=== PATIENT | male | born 1950 | race African-American/Black ===

== ENCOUNTER 2016-10-18 06:25 | Day surgery (SDC) | payer OTHER ==
[2016-10-17 15:46] LABS: BASOPHILS 0.3 %; BASOPHILS ABSOLUTE 0.02 10/3/uL (0.0-0.16); EOSINOPHILS 0.9 %; EOSINOPHILS ABSOLUTE 0.05 10/3/uL (0.0-0.53); HEMATOCRIT 38.9 % (40.0-51.0); HEMOGLOBIN 12.7 g/dL (13.6-17.8); IMMATURE GRANULOCYTES 0.2 %; IMMATURE GRANULOCYTES ABSOLUTE 0.01 10/3/uL (0.0-0.11); LYMPHOCYTES 29.8 %; LYMPHOCYTES ABSOLUTE 1.74 10/3/uL (0.67-4.30); MEAN CORPUS HGB CONC 32.6 g/dL (32.0-36.0); MEAN CORPUSCULAR HEMOGLOB 29.8 pg (26.0-34.0); MEAN CORPUSCULAR VOLUME 91.3 fL (80-100); MEAN PLATELET VOLUME 10.4 fL (9.2-13.0); MONOCYTES ABSOLUTE 0.35 10/3/uL (0.21-1.20); NEUTROPHILS 62.8 %; NEUTROPHILS ABSOLUTE 3.67 10/3/uL (2.02-8.40); PLATELET COUNT 187 10/3/uL (150-400); RED CELL COUNT 4.26 10/6/uL (4.7-6.1); WHITE BLOOD CELLS 5.8 10/3/uL (4.5-10.5)
[2016-10-17 15:52] LABS: MANUAL DIFF NO %
[2016-10-17 15:57] LABS: BUN (BLOOD UREA NITROGEN) 16 MG/DL (6-23); CALCIUM, SERUM 9.7 MG/DL (8.5-10.4); CHLORIDE, SERUM 107 MMOL/L (96-112); CO2 (CARBON DIOXIDE) 31 MMOL/L (24-34); CREATININE 1.31 MG/DL (0.70-1.30); GFR AFRICAN AMERICAN 66 ML/MIN (>=60); GFR NON AFRICAN AMERICAN 57 ML/MIN (>=60); GLUCOSE, SERUM 103 MG/DL (60-99); POTASSIUM, SERUM 4.2 MMOL/L (3.5-5.3); SODIUM, SERUM 143 MMOL/L (135-148)
[2016-10-17 16:12] LABS: ASCORBIC ACID (UR NOT ORDER) NEG (NEG); BILIRUBIN, URINE NEGATIVE (NEG); KETONE, URINE NEGATIVE (NEG)
--- NOTE | ~2016-10-18 | OP ---
Record Of Operation [address] [place]. [address] NAME: SUGAR CHUNG : 54 STATUS : [place] [facility] [place] [id number] AGE: 66 ADM/REG DATE : 10/18/16 MR#: [id number] REPORT SERV DATE: 10/18/16 DICTATED BY: GULSHAN SILVERMAN DATE: 10/18/16 REPORT STATUS : Draft TRANSCRIBED BY: MODL DATE: 10/18/16 DATE OF PROCEDURE: 10/18/2016 SURGEON: Gulshan Silverman MD. TITLE OF OPERATION: Cystourethroscopy. PREOPERATIVE DIAGNOSIS: Bladder mass. POSTOPERATIVE DIAGNOSIS: No evidence of bladder mass. INDICATIONS: Mr. Chung is a 66-year-old male with a 4 cm bladder mass on ultrasound. He is a former smoker. He is here for cystoscopy and possible resection of bladder tumor. ANESTHESIA: General. COMPLICATIONS: None. IMPLANTS: None. SPECIMENS: None. NARRATIVE: The patient was brought to the operating room, identified by his wristband. General anesthesia was induced, and Ancef was given for preoperative antibiotics. He was placed in dorsal lithotomy position, prepped and draped in sterile fashion. A cystoscope was placed into his urethra into his bladder. The prostatic urethra was short and appeared somewhat obstructing. The bladder was inspected. There was no obvious mass in the bladder. The mucosa was completely normal. There was no bleeding. There were no abnormalities. There was a sense of fullness extrinsic to the bladder, but was certainly not involving the bladder mucosa itself. His bladder was inspected with the 30 and 70 degree lens, and again no lesions were found. The bladder was drained. The scope was removed. I will get a CT scan after he recovers in the recovery room to better identify what is going on. I suspect it may just be the reservoir of his penile prosthesis, and I will see him back in one week to go over all the results. SARA/PHYLICIA Gulshan Silverman MD / [id number] CC: Gulshan Silverman MD Record Of Operation [address] [place]. [address] NAME: SUGAR CHUNG : 54 STATUS : REG [facility]#: [id number] AGE: 66 ADM/REG DATE : 10/18/16 MR#: [id number] REPORT SERV DATE: 10/18/16 DICTATED BY: GULSHAN SILVERMAN DATE: 10/18/16 REPORT STATUS : Draft TRANSCRIBED BY: MODL DATE: 10/18/16 Marin Oliver M.D.
[~2016-10-18 06:25] MED LIST: ASAB PO; DENIES HOME MEDS; DILACOR X2 PO; HYZAAR 100/25 T1 TAB PO; LEVOTHYROXIN150 MCG PO; LIPITOR20 PO; MCZ25 PO; PROTONIX PO; Z100 PO
== END 2016-10-18 16:18 | disposition home or self-care (01) ==
LOC: SDC 06:25
PROVIDERS: Urology
PROC: 0TJB8ZZ Inspection of Bladder, Via Natural or Artificial Opening Endoscopic (ICD-10-PCS; principal; 2016-10-18 07:45)
DX: N32.89 Other specified disorders of bladder (principal); I10 Essential (primary) hypertension; K21.9 Gastro-esophageal reflux disease without esophagitis; E03.9 Hypothyroidism, unspecified; E78.00 Pure hypercholesterolemia, unspecified; M10.9 Gout, unspecified; Z88.7 Allergy status to serum and vaccine; Z90.89 Acquired absence of other organs; Z79.82 Long term (current) use of aspirin; Z79.899 Other long term (current) drug therapy; Z98.890 Other specified postprocedural states; Z92.3 Personal history of irradiation
CPT/HCPCS: 36415; 74178; 80048; 81001; 85025; 86850; 86900; 86901; 87086; 93005; J2710; Q9967